=== PATIENT | female | born 1955 | race American Indian/Alaskan Native ===

== ENCOUNTER 2020-10-06 12:36 | Emergency (ER) | payer MEDICARE ==
[2020-10-06 15:32] VITALS: BP 195/92
--- NOTE | 2020-10-06 15:40 | Emergency Department Report ---
ED General Adult HPI - General Chief complaint: Abdominal Pain Stated complaint: STOMACH AND BACK PAIN Time Seen by Provider: 10/06/20 15:31 Source: patient Mode of arrival: Ambulatory Limitations: No Limitations - History of Present Illness Initial comments: Patient is a 65-year-old female presents emergency room complaints of right lower quadrant abdominal pain and right flank pain that began 2 days ago. She has associated diarrhea. She states that she is also been having chills, generalized body aches, dry cough. She denies any vomiting, hematochezia, melena, hematemesis, urinary symptoms, shortness of breath, chest pain. Past medical history of migraines. Allergy to rizatriptan. She states that she has been vaccinated for COVID-19. She denies any known sick contacts. She states that she recently traveled here from [place] to care for her brother. She denies any recent camping, recent antibiotics, water from a different source. - Related Data Previous Rx's Medication Instructions Recorded Last Taken Type Benzonatate [Tessalon Perles] 100 mg PO Q8HR PRN #12 capsule 10/06/20 Unknown Rx Hyoscyamine Subl [Levsin Sl 0.125 0.125 mg SL Q6HR PRN #10 tab 10/06/20 Unknown Rx TAB] Allergies Allergy/AdvReac Type Severity Reaction Status Date / Time rizatriptan [From [facility]] Allergy Shortness Verified 10/06/20 13:13 of Breath ED Review of Systems ROS: Stated complaint: STOMACH AND BACK PAIN Other details as noted in HPI Comment: All other systems reviewed and negative ED Past Medical Hx - Past Medical History Previous Medical History?: Yes Hx Headaches / Migraines: Yes - Surgical History Past Surgical History?: Yes Hx Cholecystectomy: Yes Additional Surgical History: part hyst - Medications Home Medications: Home Medications Medication Instructions Recorded Confirmed Last Taken Type Benzonatate [Tessalon Perles] 100 mg PO Q8HR PRN #12 capsule 10/06/20 Unknown Rx Hyoscyamine Subl [Levsin Sl 0.125 0.125 mg SL Q6HR PRN #10 tab 10/06/20 Unknown Rx TAB] ED Physical Exam - General Limitations: No Limitations General appearance: alert, in no apparent distress - Head Head exam: Present: atraumatic, normocephalic - Eye Eye exam: Present: normal appearance - ENT ENT exam: Present: mucous membranes moist - Respiratory Respiratory exam: Present: normal lung sounds bilaterally. Absent: respiratory distress, wheezes, rales, rhonchi, stridor, chest wall tenderness, accessory muscle use, decreased breath sounds, prolonged expiratory - Cardiovascular Cardiovascular Exam: Present: regular rate, normal rhythm, normal heart sounds. Absent: systolic murmur, diastolic murmur, rubs, gallop - GI/Abdominal GI/Abdominal exam: Present: soft, tenderness (RLQ), normal bowel sounds. Absent: distended, guarding, rebound, rigid - Back Exam Back exam: Present: CVA tenderness (R). Absent: CVA tenderness (L) - Neurological Exam Neurological exam: Present: alert, oriented X3 - Psychiatric Psychiatric exam: Present: normal affect, normal mood - Skin Skin exam: Present: warm, dry, intact ED Course Vital Signs 10/06/20 13:14 Temperature 98.3 F Pulse Rate 73 Respiratory 20 Rate Blood Pressure 195/92 O2 Sat by Pulse 99 Oximetry ED Medical Decision Making - Lab Data Result diagrams: 10/06/20 15:45 10/06/20 15:45 Lab Results 10/06/20 10/06/20 10/06/20 Range/Units 15:45 15:45 Unknown WBC 4.8 (4.5-11.0) K/mm3 RBC 4.35 (3.65-5.03) M/mm3 Hgb 13.2 (10.1-14.3) gm/dl Hct 38.4 (30.3-42.9) % MCV 88 (79-97) fl MCH 30 (28-32) pg MCHC 34 (30-34) % RDW 14.7 (13.2-15.2) % Plt Count 217 (140-440) K/mm3 Lymph % (Auto) 39.2 H (13.4-35.0) % [place] % (Auto) 8.6 H (0.0-7.3) % Eos % (Auto) 1.4 (0.0-4.3) % Baso % (Auto) 0.4 (0.0-1.8) % Lymph # (Auto) 1.9 (1.2-5.4) K/mm3 Jefferson # (Auto) 0.4 (0.0-0.8) K/mm3 Eos # (Auto) 0.1 (0.0-0.4) K/mm3 Baso # (Auto) 0.0 (0.0-0.1) K/mm3 Seg Neutrophils % 50.4 (40.0-70.0) % Seg Neutrophils # 2.4 (1.8-7.7) K/mm3 Sodium 139 (137-145) mmol/L Potassium 3.6 (3.6-5.0) mmol/L Chloride 101.7 (98-107) mmol/L Carbon Dioxide 25 (22-30) mmol/L Anion Gap 16 mmol/L BUN 8 (7-17) mg/dL Creatinine 0.7 (0.6-1.2) mg/dL Estimated GFR > 60 ml/min BUN/Creatinine Ratio 11 % Glucose 87 (65-100) mg/dL Calcium 9.5 (8.4-10.2) mg/dL Total Bilirubin 0.40 (0.1-1.2) mg/dL AST 29 (5-40) units/L ALT 31 (7-56) units/L Alkaline Phosphatase 109 (35-129) units/L Total Protein 8.2 (6.3-8.2) g/dL Albumin 4.6 (3.9-5) g/dL Albumin/Globulin Ratio 1.3 % Lipase 27 (13-60) units/L Urine Color Yellow (Yellow) Urine Turbidity Clear (Clear) Urine pH 5.0 (5.0-7.0) Ur Specific [place] 1.016 (1.003-1.030) Urine Protein <15 mg/dl (Negative) mg/dL Urine Glucose (UA) Neg (Negative) mg/dL Urine Ketones Neg (Negative) mg/dL Urine Blood Neg (Negative) Urine Nitrite Neg (Negative) Urine Bilirubin Neg (Negative) Urine Urobilinogen < 2.0 (<2.0) mg/dL Ur Leukocyte Esterase Neg (Negative) Urine WBC (Auto) 1.0 (0.0-6.0) /HPF Urine RBC (Auto) 1.0 (0.0-6.0) /HPF U Epithel Cells (Auto) 2.0 (0-13.0) /HPF Urine Bacteria (Auto) 1+ (Negative) /HPF Urine Mucus Few /HPF - Radiology Data Radiology results: report reviewed Ordering Physician: VANITA MATTHEW Date of Service: 10/06/20 Procedure(s): CT abdomen pelvis w con Accession Number(s): [id number] cc: VANITA MATTHEW CT OF THE ABDOMEN AND PELVIS WITH INTRAVENOUS CONTRAST INDICATION / CLINICAL INFORMATION: RLQ and right flank pain with diarrhea. TECHNIQUE: The patient received 100 cc Omnipaque [address] scans at this location are performed using CT dose reduction for ALARA by means of automated exposure control. COMPARISON: None available. FINDINGS: ABDOMEN: The gallbladder is surgically absent. There is moderate diffuse fatty infiltration of the liver. The liver measures 18 cm in length There is a 3.6 cm simple cyst in the upper pole of the right kidney. The bile ducts, pancreas, spleen, adrenal glands, left kidney and bowel demonstrate no significant abnormality. There is no evidence of bowel obstruction, wall thickening or free air. No adenopathy is present. The lung bases are clear. PELVIS: The distal ureters and urinary bladder are normal. The uterus is surgically absent. There is no evidence of adnexal mass or free fluid. A normal appendix is present and there is no evidence of diverticulitis. There is a tiny fat-containing periumbilical hernia without complication. There is mild spondylosis. IMPRESSION: 1. No acute intra-abdominal disease is identified. 2. Mild hepatomegaly with moderate diffuse fatty infiltration. Signer Name: Richardson Patton MD Signed: 10/06/2020 6:25 PM Workstation Name: [id number] Transcribed By: RT Dictated By: Richardson Patton MD Electronically Authenticated By: Richardson Patton MD Signed Date/Time: 10/06/201824 DD/ 20 TD/TT: Print Ordering Physician: VANITA MATTHEW Date of Service: 10/06/20 Procedure(s): XR chest routine 2V Accession Number(s): [id number] cc: VANITA MATTHEW Fluoro Time In Minutes: CHEST 2 VIEWS INDICATION / CLINICAL INFORMATION: Cough for 2 days. Abdominal and back pain for 2 days. COMPARISON: None available. FINDINGS: SUPPORT DEVICES: None. HEART / MEDIASTINUM: The heart size and pulmonary vasculature are normal. The aorta is normal in caliber. LUNGS / PLEURA: No significant pulmonary or pleural abnormality. No pneumothorax. ADDITIONAL FINDINGS: No significant additional findings. IMPRESSION: No acute findings. Signer Name: Richardson Patton MD Signed: 10/06/2020 4:04 PM Workstation Name: [id number] Transcribed By: RT Dictated By: Richardson Patton MD Electronically Authenticated By: Richardson Patton MD Signed Date/Time: 10/06/201603 DD/ 02 TD/TT: - Medical Decision Making Patient is a 65-year-old female presents emergency room complaints of right lower quadrant abdominal pain and right flank pain that began 2 days ago. She has associated diarrhea. She states that she is also been having chills, generalized body aches, dry cough. She denies any vomiting, hematochezia, melena, hematemesis, urinary symptoms, shortness of breath, chest pain. Past medical history of migraines. Allergy to rizatriptan. She states that she has been vaccinated for COVID-19. She denies any known sick contacts. She states that she recently traveled here from [place] to care for her brother. She denies any recent camping, recent antibiotics, water from a different source. On exam: Right lower quadrant tender palpation, no guarding, no rebound, rigidity, nor masses, no peritoneal signs. Labs are normal. UA is within normal meds. CT abdomen pelvis IV contrast: 1. No acute intra-abdominal disease is identified. 2. Mild hepatomegaly with moderate diffuse fatty infiltration. Chest x-ray: IMPRESSION: No acute findings. Discussed all results with patient and answer questions. Given prescription for medications. Advised patient Plea se take medication as prescribed. Increase your water intake. Eat a bland liquid diet and slowly advance her diet as tolerated. Follow-up with a primary care doctor. follow up with a GI doctor. Return to emergency room for any new or worsening symptoms. Recommend for you to get outpatient COVID-19 testing and quarantine as necessary. Critical care attestation.: If time is entered above; I have spent that time in minutes in the direct care of this critically ill patient, excluding procedure time. ED Disposition Clinical Impression: Dry cough, Hepatomegaly Abdominal pain Qualifiers: Abdominal location: right lower quadrant Qualified Code(s): R10.31 - Right lower quadrant pain Back pain Qualifiers: Back pain location: low back pain Chronicity: acute Back pain laterality: right Sciatica presence: without sciatica Qualified Code(s): M54.5 - Low back pain Diarrhea Qualifiers: Diarrhea type: unspecified type Qualified Code(s): R19.7 - Diarrhea, unspecified Disposition: DC TO HOME OR SELFCARE Is pt being admited?: No Does the pt Need Aspirin: No Condition: Stable Instructions: Diarrhea, Adult, Hepatomegaly, Cough, Adult, [id number], Flank Pain, Adult, Abdominal Pain (ED) Additional Instructions: Please take medication as prescribed. Increase your water intake. Eat a bland liquid diet and slowly advance her diet as tolerated. Follow-up with a primary care doctor. follow up with a GI doctor. Return to emergency room for any new or worsening symptoms. Recommend for you to get outpatient COVID-19 testing and quarantine as necessary. Prescriptions: Hyoscyamine Subl [Levsin Sl 0.125 TAB] 0.125 mg SL Q6HR PRN #10 tab PRN Reason: abd cramping/diarrhea Benzonatate [Tessalon Perles] 100 mg PO Q8HR PRN #12 capsule PRN Reason: cough Referrals: your, primary care doctor [Other] - 2-3 Days [facility] [Provider Group] - 2-3 Days Time of Disposition: 18:50 Print Language: NAMIBIAN
--- NOTE | 2020-10-06 16:08 | XRay Report ---
CHEST 2 VIEWS INDICATION / CLINICAL INFORMATION: Cough for 2 days. Abdominal and back pain for 2 days. COMPARISON: None available. FINDINGS: SUPPORT DEVICES: None. HEART / MEDIASTINUM: The heart size and pulmonary vasculature are normal. The aorta is normal in joyce george. LUNGS / PLEURA: No significant pulmonary or pleural abnormality. No pneumothorax. ADDITIONAL FINDINGS: No significant additional findings. IMPRESSION: No acute findings. Signer Name: Richardson Patton MD Signed: 10/06/2020 4:04 PM Workstation Name: [id number]
[2020-10-06 16:45] LABS: Alanine Aminotransferase 31 units/L (7-56); Albumin 4.6 g/dL (3.9-5); Blood Urea Nitrogen 8 mg/dL (7-17); Calcium 9.5 mg/dL (8.4-10.2); Hemolysis Index 4
[2020-10-06 16:46] LABS: BUN/Creatinine Ratio 11
[2020-10-06 16:53] LABS: Basophils % (Auto) 0.4 % (0.0-1.8); Eosinophils # (Auto) 0.1 K/mm3 (0.0-0.4); Eosinophils % (Auto) 1.4 % (0.0-4.3); Hematocrit 38.4 % (30.3-42.9); Hemoglobin 13.2 gm/dl (10.1-14.3); Lymphocytes # (Auto) 1.9 K/mm3 (1.2-5.4); Lymphocytes % (Auto) 39.2 % (13.4-35.0); Mean Corpuscular HGB Conc 34 % (30-34); Mean Corpuscular Volume 88 fl (79-97); Monocytes # (Auto) 0.4 K/mm3 (0.0-0.8); Monocytes % (Auto) 8.6 % (0.0-7.3); Platelet Count 217 K/mm3 (140-440); Red Blood Count 4.35 M/mm3 (3.65-5.03); Red Cell Distribution Width 14.7 % (13.2-15.2)
[2020-10-06 18:06] LABS: Bacteria,Urine 1+ /HPF (Negative); Bilirubin,Urine NEG (Negative); Blood,Urine NEG (Negative); Color,Urine Yellow (Yellow); Mucus,Urine FEW /HPF; Protein,Urine <15 mg/dL mg/dL (Negative); Urobilinogen,Urine < 2.0 mg/dL (<2.0)
--- NOTE | 2020-10-06 18:30 | Cat Scan Report ---
CT OF THE ABDOMEN AND PELVIS WITH INTRAVENOUS CONTRAST INDICATION / CLINICAL INFORMATION: RLQ and right flank pain with diarrhea. TECHNIQUE: The patient received 100 cc Omnipaque [address] scans at this location are performed using CT dose reduction for ALARA by means of automated exposure control. COMPARISON: None available. FINDINGS: ABDOMEN: The gallbladder is surgically absent. There is moderate diffuse fatty infiltration of the li jay. The liver measures 18 cm in length There is a 3.6 cm simple cyst in the upper pole of the right kidney. The bile ducts, pancreas, spleen, adrenal glands, left kidney and bowel demonstrate no signif icant abnormality. There is no evidence of bowel obstruction, wall thickening or free air. No adenopa thy is present. The lung bases are clear. PELVIS: The distal ureters and urinary bladder are normal. The uterus is surgically absent. There is no evidence of adnexal mass or free fluid. A normal appendix is present and there is no evidence of d iverticulitis. There is a tiny fat-containing periumbilical hernia without complication. There is mil d spondylosis. IMPRESSION: 1. No acute intra-abdominal disease is identified. 2. Mild hepatomegaly with moderate diffuse fatty infiltration. Signer Name: Richardson Patton MD Signed: 10/06/2020 6:25 PM Workstation Name: [id number]
== END 2020-10-06 18:05 | disposition home or self-care (01) ==
LOC: ED 12:36
DX: R16.0 Hepatomegaly, not elsewhere classified (principal); R05 Cough; R10.31 Right lower quadrant pain; M54.9 Dorsalgia, unspecified; R19.7 Diarrhea, unspecified; G43.909 Migraine, unspecified, not intractable, without status migrainosus; Z98.890 Other specified postprocedural states; Z88.8 Allergy status to other drugs, medicaments and biological substances
CPT/HCPCS: 36415; 71046; 74177; 80053; 81001; 83690; 85025; 99284; Q9967